=== PATIENT | female | born 1945 | race Caucasian/White ===

== ENCOUNTER 2018-12-01 20:43 | Emergency (ER) | payer BC ==
[2018-12-01] MEDS: KETOROLAC 15 MG INJ IM (22:20)
[2018-12-01] MEDS: morphine LIQ (10 MG/5 ML) CUP PO (22:20)
== END 2018-12-02 00:54 | disposition home or self-care (01) ==
LOC: FTE 12-02 00:54
DX: S32.009A Unspecified fracture of unspecified lumbar vertebra, initial encounter for closed fracture (principal); S22.42XA Multiple fractures of ribs, left side, initial encounter for closed fracture; I10 Essential (primary) hypertension; E11.9 Type 2 diabetes mellitus without complications; W01.0XXA Fall on same level from slipping, tripping and stumbling without subsequent striking against object, initial encounter; Y92.9 Unspecified place or not applicable; Z79.4 Long term (current) use of insulin
CPT/HCPCS: 71250; 73030; 73510; 74176; 96372; 99285-25